=== PATIENT | male | born 2000 | race Caucasian/White ===

== ENCOUNTER 2021-08-26 15:10 | Inpatient (IN) | payer OTHER, SELFPAY ==
[2021-08-26] VITALS (7 sets, daily range): BP systolic 97–111; BP diastolic 50–67; PULSE 114–126; RESP 16–22; TEMP 38.4–39.3; O2SAT 97–100; BMI 23.3; BMI 23.1
--- NOTE | 2021-08-26 16:07 | W.ED.GENADLT ---
Documented by User: LYN Mills 08/26/21 16:12 HPI - General Adult General: Chief complaint: General Medical Stated complaint: COUGH, NAUSEA, MUSCLE ACHES, STATES FEVER Time Seen by Provider: 08/26/21 16:02 History of Present Illness: HPI narrative: Patient presents with fever headache ,chills,muscle aches, eye pressure, redness and slight cough , rash over the last couple or 3 days. Patient is recently seen by his primary care provider and put on antibiotics because he had a pilonidal cyst removed and they thought it might be infected because it had some drainage. Patient states he just does not feel good. Is supposed to go back up to [facility] in a couple weeks for reevaluation of his pilonidal cyst area. Patient was placed on Bactrim. Onset (ago): day(s) Location: face, upper extremity and lower extremity Severity: moderate Quality: aching Associated symptoms: Reports headache(s), malaise and rash; Deny chest pain or vomiting Review of Systems Const: Reports: fever(s) and malaise; Denies: chills or body aches Eyes: Reports: eye redness; Denies: eye discharge ENMT: Reports: throat pain; Denies: oral sores or nasal congestion Card: Denies: chest pain or dyspnea on exertion Resp: Reports: non-productive cough; Denies: wheezing or stridor GI: Denies: vomiting or diarrhea : Denies: difficulty urinating Musc: Reports: other (Myalgias); Denies: extremity pain Skin/Breast: Reports: rash and other (Recent pilonidal cyst surgery) Neuro: Reports: headache(s) Psych: Denies: anxiety or depression Benigno/Lymph: Denies: easy bruising Physical Exam Const: COMMON NORMALS: no acute distress (Child appears very well is playful in no distress) GENERAL APPEARANCE: cooperative HENMT: COMMON NORMALS: normocephalic, external ears normal, EAC's normal, TM's normal bilaterally and Normal external nose present HEAD & SCALP: normal to inspection and normocephalic FACE & SINUS: normal facial exam NOSE: Normal external nose present and No nasal discharge present EXTERNAL EAR: Yes external ears normal EXTERNAL AUDITORY CANAL: EAC's normal TYMPANIC MEMBRANE: TM's normal bilaterally MOUTH: Normal oral and palatal mucosa present THROAT: posterior oropharynx normal Eye: CONJUNCTIVA: Yes conjunctival abnormal positive bilateral conjunctival injection Lymph: LYMPHATIC: no lymphadenopathy noted Chest: COMMONS NORMALS: normal inspection of the chest Resp: COMMON NORMALS: normal respiratory effort, No retractions, No use of accessory muscles and clear to auscultation bilaterally AUSCULTATION: clear to auscultation bilaterally Cardio: COMMON NORMALS: regular rate and regular rhythm RATE: regular rate RHYTHM: regular rhythm GI: COMMON NORMALS: Normal to inspection, nondistended, normoactive bowel sounds present Extremity: COMMON NORMALS: normal to inspection Skin: RASHES: rashes noted (Faint red sandpaper type rash on trunk.) OTHER: Pilonodial cyst surgical site has slight sanguinous drainage about the wound itself there is no significant erythema. No tenderness. Course Vital Signs: Vital signs: Vital Signs Temperature 102.7 F H 08/26/21 18:38 Pulse Rate 125 H 08/26/21 18:38 Respiratory Rate 16 08/26/21 18:38 Blood Pressure 105/61 08/26/21 18:38 Pulse Oximetry 99 08/26/21 18:38 [facility] - General Adult Lab Data: Labs: Lab Results 08/26/21 08/26/21 08/26/21 16:28 16:28 16:28 WBC 16.7 10^3/uL H 10 ^3/uL (4.0-10.0) RBC 4.89 10^6/uL 10^6 /uL (4.1-5.3) Hgb 15.2 g/dL g/dL (11.7-16.6) Hct 45.1 % % (42.0-52.0) MCV 92.2 fl fl (80-94) MCH 31.1 pg pg (28.0-34.0) MCHC 33.7 g/dL g/dL (30.0-36.0) RDW 11.8 % L % (12.1-15.1) Plt Count 324 10^3/cmm 10^3 /cmm (130-400) MPV 9.4 fL fL (7.4-10.4) Neut % (Auto) 91.8 % % Lymph % (Auto) 4.0 % % [place] % (Auto) 2.7 % % Eos % (Auto) 1.0 % % Baso % (Auto) 0.1 % % Neut # (Auto) 15.29 10^3/uL H 1 0^3/uL (1.8-7.7) Lymph # (Auto) 0.7 10^3/uL L 10^ 3/uL (0.8-4.8) [place] # (Auto) 0.5 10^3/uL 10^3/ uL (0.2-0.9) Eos # (Auto) 0.2 10^3/uL 10^3/ uL (0.0-0.8) Baso # (Auto) 0.0 10^3/uL 10^3/ uL (0.0-0.1) Nucleated RBC % (a uto) 0 % % Nucleated RBCs # 0.0 /100WBC /100W BC Sodium 136 mmol/L mmol/L (136-145) Potassium 3.8 mmol/L mmol/L (3.5-5.1) Chloride 98 mmol/L mmol/L (98-107) Carbon Dioxide 28 mmol/L mmol/L (22-29) Anion Gap 13.8 (5-19) BUN 15 mg/dL mg/dL (6-20) Creatinine 0.8 mg/dL mg/dL (0.7-1.2) GFR Calculation 119.8 mL/min mL/m in (90-130) Glucose 92 mg/dL mg/dL (65-115) Calculated Osmolal ity 282 mOsm/kg L mOs m/kg (285-295) Lactic Acid 1.3 mmol/L mmol/L (0.5-2.2) Calcium 9.6 mg/dL mg/dL (8.5-10.5) Total Bilirubin 0.3 mg/dL mg/dL (0.15-1.2) AST 16 U/L U/L (0-40) ALT 14 U/L U/L (0-41) Alkaline Phosphata se 60 IU/L IU/L (40-130) Total Protein 7.5 g/dL g/dL (6.6-8.7) Albumin 4.6 g/dL g/dL (3.5-5.2) Globulin 2.9 g/dL g/dL (1.3-4.6) Influenza Type A A g Influenza Type B A g SARS-CoV-2 Ag (Rap id) 08/26/21 08/26/21 16:29 16:29 WBC RBC Hgb Hct MCV MCH MCHC RDW Plt Count MPV Neut % (Auto) Lymph % (Auto) [place] % (Auto) Eos % (Auto) Baso % (Auto) Neut # (Auto) Lymph # (Auto) [place] # (Auto) Eos # (Auto) Baso # (Auto) Nucleated RBC % (a uto) Nucleated RBCs # Sodium Potassium Chloride Carbon Dioxide Anion Gap BUN Creatinine GFR Calculation Glucose Calculated Osmolal ity Lactic Acid Calcium Total Bilirubin AST ALT Alkaline Phosphata se Total Protein Albumin Globulin Influenza Type A A g Negative (Negative) Influenza Type B A g Negative (Negative) SARS-CoV-2 Ag (Rap id) Negative (Negative) Discharge Plan Discharge Patient Disposition: Admitted As Inpatient Clinical Impression: Cellulitis and abscess of buttock, Sepsis Condition: Stable Coding Level of Care Code ED Inspection Manager for Chg Fwd Exam Comprehensive Documented by User: Migdalia Bailey MD 08/26/21 19:24 HPI - General Adult General: Chief complaint: General Medical Stated complaint: COUGH, NAUSEA, MUSCLE ACHES, STATES FEVER Time Seen by Provider: 08/26/21 16:02 Course Vital Signs: Vital signs: Vital Signs Temperature 102.7 F H 08/26/21 18:38 Pulse Rate 125 H 08/26/21 18:38 Respiratory Rate 16 08/26/21 18:38 Blood Pressure 105/61 08/26/21 18:38 Pulse Oximetry 99 08/26/21 18:38 MDM - General Adult MDM Narrative: Medical decision making narrative: Patient presents here with sepsis with fever and elevated white count he does have cellulitis on his medial buttocks took patient over from Dr. Guzman who noted on exam he did not have a drainable abscess CT does not show an abscess either but does show some cellulitis. Patient spiking a fever and his tachycardia his lactate here is normal does have an elevated white count has been on Bactrim for 2 days failed outpatient treatment will start IV antibiotics I spoke to hospitalist who will admit surgery is also consulted. Lab Data: Labs: Lab Results 08/26/21 08/26/21 08/26/21 16:28 16:28 16:28 WBC 16.7 10^3/uL H 10 ^3/uL (4.0-10.0) RBC 4.89 10^6/uL 10^6 /uL (4.1-5.3) Hgb 15.2 g/dL g/dL (11.7-16.6) Hct 45.1 % % (42.0-52.0) MCV 92.2 fl fl (80-94) MCH 31.1 pg pg (28.0-34.0) MCHC 33.7 g/dL g/dL (30.0-36.0) RDW 11.8 % L % (12.1-15.1) Plt Count 324 10^3/cmm 10^3 /cmm (130-400) MPV 9.4 fL fL (7.4-10.4) Neut % (Auto) 91.8 % % Lymph % (Auto) 4.0 % % [place] % (Auto) 2.7 % % Eos % (Auto) 1.0 % % Baso % (Auto) 0.1 % % Neut # (Auto) 15.29 10^3/uL H 1 0^3/uL (1.8-7.7) Lymph # (Auto) 0.7 10^3/uL L 10^ 3/uL (0.8-4.8) [place] # (Auto) 0.5 10^3/uL 10^3/ uL (0.2-0.9) Eos # (Auto) 0.2 10^3/uL 10^3/ uL (0.0-0.8) Baso # (Auto) 0.0 10^3/uL 10^3/ uL (0.0-0.1) Nucleated RBC % (a uto) 0 % % Nucleated RBCs # 0.0 /100WBC /100W BC Sodium 136 mmol/L mmol/L (136-145) Potassium 3.8 mmol/L mmol/L (3.5-5.1) Chloride 98 mmol/L mmol/L (98-107) Carbon Dioxide 28 mmol/L mmol/L (22-29) Anion Gap 13.8 (5-19) BUN 15 mg/dL mg/dL (6-20) Creatinine 0.8 mg/dL mg/dL (0.7-1.2) GFR Calculation 119.8 mL/min mL/m in (90-130) Glucose 92 mg/dL mg/dL (65-115) Calculated Osmolal ity 282 mOsm/kg L mOs m/kg (285-295) Lactic Acid 1.3 mmol/L mmol/L (0.5-2.2) Calcium 9.6 mg/dL mg/dL (8.5-10.5) Total Bilirubin 0.3 mg/dL mg/dL (0.15-1.2) AST 16 U/L U/L (0-40) ALT 14 U/L U/L (0-41) Alkaline Phosphata se 60 IU/L IU/L (40-130) Total Protein 7.5 g/dL g/dL (6.6-8.7) Albumin 4.6 g/dL g/dL (3.5-5.2) Globulin 2.9 g/dL g/dL (1.3-4.6) Influenza Type A A g Influenza Type B A g SARS-CoV-2 Ag (Rap id) 08/26/21 08/26/21 16:29 16:29 WBC RBC Hgb Hct MCV MCH MCHC RDW Plt Count MPV Neut % (Auto) Lymph % (Auto) [place] % (Auto) Eos % (Auto) Baso % (Auto) Neut # (Auto) Lymph # (Auto) [place] # (Auto) Eos # (Auto) Baso # (Auto) Nucleated RBC % (a uto) Nucleated RBCs # Sodium Potassium Chloride Carbon Dioxide Anion Gap BUN Creatinine GFR Calculation Glucose Calculated Osmolal ity Lactic Acid Calcium Total Bilirubin AST ALT Alkaline Phosphata se Total Protein Albumin Globulin Influenza Type A A g Negative (Negative) Influenza Type B A g Negative (Negative) SARS-CoV-2 Ag (Rap id) Negative (Negative) Imaging Data^: CT Abd/Pel: Attestation: I personally reviewed and interpreted this imaging study as follows: Radiologist's impression: [address] [address] [address] Scan Report Signed Patient: JasonNiall Sharmayuly Unit #: [id number] : 2000 Age/Sex: 21 / M ADM Date: 08/26/21 Loc: ER Room/Bed: Attending Dr: Ordering Provider/Ordering MD: Ash Guzman MD Date of Service: 08/26/21 Procedure(s): CT abdomen pelvis w con* [id number] Accession Number(s): [id number] Report Number: [id number] PROCEDURE INFORMATION: Exam: CT Abdomen And Pelvis With Contrast Exam date and time: 08/26/2021 5:49 PM Age: 21 years old Clinical indication: Fever; Abdominal pain; Localized; Lower; Additional info: Rectal abscess? ? Prior pilondial cyst [place] TECHNIQUE: Imaging protocol: Computed tomography of the abdomen and pelvis with contrast. Radiation optimization: All CT scans at this facility use at least one of these dose optimization techniques: automated exposure control; mA and/or kV adjustment per patient size (includes targeted exams where dose is matched to clinical indication); or iterative reconstruction. Contrast material: OMNI 350; Contrast volume: 95 ml; Contrast route: INTRAVENOUS (IV); COMPARISON: CR XR chest 1V portable [id number] 08/26/2021 4:56 PM RADIATION DOSE METRICS: Total DLP (mGy-cm): 1624.1 FINDINGS: Liver: Normal. No mass. Gallbladder and bile ducts: Normal. No calcified stones. No ductal dilation. Pancreas: Normal. No ductal dilation. Spleen: Normal. No splenomegaly. Adrenal glands: Normal. No mass. Kidneys and ureters: Normal. No hydronephrosis. Stomach and bowel: Unremarkable. No obstruction. No mucosal thickening. Appendix: The appendix is visualized and is normal. Intraperitoneal space: Unremarkable. No free air. No significant fluid collection. Vasculature: Unremarkable. No abdominal aortic aneurysm. Lymph nodes: Prominent mesenteric and inguinal lymph nodes are most likely reactive. Urinary bladder: Unremarkable as visualized. Reproductive: Unremarkable as visualized. Bones/joints: Chronic limbus L3 and L5 vertebral bodies. No acute fracture. Soft tissues: Mild subcutaneous fat stranding or edema in the bilateral buttock region. No focal fluid collection or abscess. CT/CT abdomen pelvis w con* [id number] IMPRESSION: 1. Mild subcutaneous edema or cellulitis in the medial buttocks. No abscess identified. Radiation Dose CTDIVOL = (mGy): DLP = 1624.1 (mGy-cm) Dictated By: Ignacio Wall Signed By: Ignacio Wall Signed Date/Time: 08/26/211821 DD/ 48 Discharge Plan Discharge Patient Disposition: Admitted As Inpatient Clinical Impression: Cellulitis and abscess of buttock, Sepsis Condition: Stable Coding Level of Care Code ED Inspection Manager for Chg Fwd Exam Comprehensive
[2021-08-26] MEDS: acetaminophen 500 mg Tablet 1000 MG PO ×2 (16:17→19:10)
--- NOTE | 2021-08-26 16:48 | XRR_ITS ---
PROCEDURE INFORMATION: Exam: XR Chest Exam date and time: 08/26/2021 4:48 PM Age: 21 years old Clinical indication: Cough TECHNIQUE: Imaging protocol: XR of the chest. Views: 1 view. COMPARISON: CR Chest 2 views* [id number] 04/25/2017 2:11 PM FINDINGS: Lungs: Unremarkable. No consolidation. Pleural spaces: Unremarkable. No pleural effusion. No pneumothorax. Heart/Mediastinum: Unremarkable. No cardiomegaly. Bones/joints: Unremarkable. XR/XR chest 1V portable [id number] IMPRESSION: No acute findings. Radiation Dose CTDIVOL = (mGy): DLP = (mGy-cm)
[2021-08-26 16:50] LABS: Basophils % 0.1 %; Eosinophils # 0.2 10^3/uL (0.0-0.8); Hematocrit 45.1 % (42.0-52.0); Hemoglobin 15.2 g/dL (11.7-16.6); Lymphocytes # 0.7 10^3/uL (0.8-4.8); Mean Corpuscular HGB Conc 33.7 g/dL (30.0-36.0); Mean Corpuscular Hemoglobin 31.1 pg (28.0-34.0); Mean Corpuscular Volume 92.2 fl (80-94); Mean Platelet Volume 9.4 fL (7.4-10.4); Monocytes # 0.5 10^3/uL (0.2-0.9); Monocytes % 2.7 %; Neutrophils # 15.29 10^3/uL (1.8-7.7); Neutrophils % 91.8 %; Nucleated Red Blood Cells % 0 %; Platelet Count 324 10^3/cmm (130-400); Red Blood Count 4.89 10^6/uL (4.1-5.3); Red Cell Distribution Width 11.8 % (12.1-15.1); White Blood Count 16.7 10^3/uL (4.0-10.0)
[2021-08-26] MEDS: sodium chloride 0.9% 1,000 ML 999 ML IV ×3 (16:54→19:13)
[2021-08-26 17:21] LABS: Alanine Aminotransferase 14 U/L (0-41); Albumin Level 4.6 g/dL (3.5-5.2); Alkaline Phosphatase 60 IU/L (40-130); Anion Gap 13.8 (5-19); Aspartate Amino Transferase 16 U/L (0-40); Blood Urea Nitrogen 15 mg/dL (6-20); Calcium 9.6 mg/dL (8.5-10.5); Carbon Dioxide 28 mmol/L (22-29); Chloride 98 mmol/L (98-107); Globulin 2.9 g/dL (1.3-4.6); Glomerular Filtration Rate 119.8 mL/min (90-130); Glucose 92 mg/dL (65-115); Osmolality Calculated 282 mOsm/kg (285-295); Potassium 3.8 mmol/L (3.5-5.1); Sodium 136 mmol/L (136-145); Total Bilirubin 0.3 mg/dL (0.15-1.2); Total Protein 7.5 g/dL (6.6-8.7)
[2021-08-26 17:22] LABS: Lactic Sepsis W/Reflex 1.3 mmol/L (0.5-2.2)
[2021-08-26 17:33] LABS: Influenza A by IFA Negative (Negative); Influenza B by IFA Negative (Negative); SARS Covid-2 Antigen Negative (Negative)
--- NOTE | 2021-08-26 17:49 | CTR_ITS ---
PROCEDURE INFORMATION: Exam: CT Abdomen And Pelvis With Contrast Exam date and time: 08/26/2021 5:49 PM Age: 21 years old Clinical indication: Fever; Abdominal pain; Localized; Lower; Additional info: Rectal abscess? ? Prior pilondial cyst [place] TECHNIQUE: Imaging protocol: Computed tomography of the abdomen and pelvis with contrast. Radiation optimization: All CT scans at this facility use at least one of these dose optimization techniques: automated exposure control; mA and/or kV adjustment per patient size (includes targeted exams where dose is matched to clinical indication); or iterative reconstruction. Contrast material: OMNI 350; Contrast volume: 95 ml; Contrast route: INTRAVENOUS (IV); COMPARISON: CR XR chest 1V portable [id number] 08/26/2021 4:56 PM RADIATION DOSE METRICS: Total DLP (mGy-cm): 1624.1 FINDINGS: Liver: Normal. No mass. Gallbladder and bile ducts: Normal. No calcified stones. No ductal dilation. Pancreas: Normal. No ductal dilation. Spleen: Normal. No splenomegaly. Adrenal glands: Normal. No mass. Kidneys and ureters: Normal. No hydronephrosis. Stomach and bowel: Unremarkable. No obstruction. No mucosal thickening. Appendix: The appendix is visualized and is normal. Intraperitoneal space: Unremarkable. No free air. No significant fluid collection. Vasculature: Unremarkable. No abdominal aortic aneurysm. Lymph nodes: Prominent mesenteric and inguinal lymph nodes are most likely reactive. Urinary bladder: Unremarkable as visualized. Reproductive: Unremarkable as visualized. Bones/joints: Chronic limbus L3 and L5 vertebral bodies. No acute fracture. Soft tissues: Mild subcutaneous fat stranding or edema in the bilateral buttock region. No focal fluid collection or abscess. CT/CT abdomen pelvis w con* [id number] IMPRESSION: 1. Mild subcutaneous edema or cellulitis in the medial buttocks. No abscess identified. Radiation Dose CTDIVOL = (mGy): DLP = 1624.1 (mGy-cm)
[2021-08-26] MEDS: iohexol 300 mg/mL 100 mL Btl IV (17:59)
[2021-08-26] MEDS: HYDROmorphone 1 mg/mL INJ 1 mL IVP (19:28)
[2021-08-26] MEDS: vancomycin 1,000 MG in sodium chloride 0.9% 250 ML 250 MG IV (19:35)
--- NOTE | 2021-08-26 20:19 | PM.HP ---
Providers/Chief Complaint Admitting Physician: J Carlos Gandhi Chief Complaint: COUGH, NAUSEA, MUSCLE ACHES, STATES FEVER History of Present Illness Niall Gomez is a 21 year old male with a recent history of pilonidal cyst which falls removed about 3 months ago in a different state, no significant chronic medical problems who is presenting with complaints of fever and chills. Since his surgery the patient was experiencing ongoing discharge and bleeding from the surgical site. No significant improvement with outpatient p.o. antibiotics. He reports associated pain. Several days ago he developed fever which increased reaching 104 today. Reports feeling sick. Additionally he reports runny nose, congestion, cough. No chest pain, shortness of breath, palpitations, nausea or vomiting, diarrhea or constipation. Covid and flu testing in ER was negative. Chest x-ray was unremarkable. Denies any similar episodes in the past. Review of Systems General: Reports: 10 or more systems reviewed and unremarkable except in HPI and below Medications/Allergies Allergies Allergy/AdvReac Type Severity Reaction Status Date / Time No Known Allergies Allergy Verified 08/26/21 19:02 Vitals/I&O/Wt Last Vital Signs Temp 102.5 F H 08/26/21 19:10 Pulse 125 H 08/26/21 19:10 Resp 22 H 08/26/21 19:28 BP 102/67 08/26/21 19:10 Pulse Ox 99 08/26/21 19:10 08/26/21 08/26/21 08/26/21 06:59 14:59 22:59 Intake Total 1999 Balance 1999 Weight last 48 hrs Weight 87.09 kg Physical Exam Narrative: EXAM NARRATIVE: The patient is awake alert and oriented. Responses are adequate. Mild distress due to generalized symptoms and fever. Skin is warm, hyperemic and slightly diaphoretic. Moist mucous membranes Eyes PERRL, extraocular muscles are intact. Scleral injection is present. Throat is clear, no exudates, hyperemic. Neck is supple. No JVD Lungs are clear to auscultation bilaterally. No wheezes or crackles Heart S1, S2, regular tachycardia Abdomen is soft, nontender, bowel sounds are present Examination of the buttock area shows upper midline wound with purulent discharge and surrounding cellulitis and hyperemia. Extremities no edema cyanosis or calf tenderness bilaterally Data : 08/26/21 16:28 08/26/21 16:28 Other Labs: Laboratory Results WBC 16.7 10^3/uL (4.0-10.0) H 08/26/21 16: RBC 4.89 10^6/uL (4.1-5.3) 08/26/21 16:28 Hgb 15.2 g/dL (11.7-16.6) 08/26/21 16: Hct 45.1 % (42.0-52.0) 08/26/21 16: MCV 92.2 fl (80-94) 08/26/21 16: MCH 31.1 pg (28.0-34.0) 08/26/21 16: MCHC 33.7 g/dL (30.0-36.0) 08/26/21 16: RDW 11.8 % (12.1-15.1) L 08/26/21 16: Plt Count 324 10^3/cmm (130-400) 08/26/21 16: MPV 9.4 fL (7.4-10.4) 08/26/21 16: Neut % (Auto) 91.8 % 08/26/21 16: Lymph % (Auto) 4.0 % 08/26/21 16: [place] % (Auto) 2.7 % 08/26/21 16: Eos % (Auto) 1.0 % 08/26/21 16: Baso % (Auto) 0.1 % 08/26/21 16: Neut # (Auto) 15.29 10^3/uL (1.8-7.7) H 08/26/21 16: Lymph # (Auto) 0.7 10^3/uL (0.8-4.8) L 08/26/21 16:28 [place] # (Auto) 0.5 10^3/uL (0.2-0.9) 08/26/21 16: Eos # (Auto) 0.2 10^3/uL (0.0-0.8) 08/26/21 16:28 Baso # (Auto) 0.0 10^3/uL (0.0-0.1) 08/26/21 16:28 Nucleated RBC % (auto) 0 % 08/26/21 16:28 Nucleated RBCs # 0.0 /100WBC 08/26/21 16:28 Sodium 136 mmol/L (136-145) 08/26/21 16:28 Potassium 3.8 mmol/L (3.5-5.1) 08/26/21 16:28 Chloride 98 mmol/L (98-107) 08/26/21 16:28 Carbon Dioxide 28 mmol/L (22-29) 08/26/21 16:28 Anion Gap 13.8 (5-19) 08/26/21 16:28 BUN 15 mg/dL (6-20) 08/26/21 16:28 Creatinine 0.8 mg/dL (0.7-1.2) 08/26/21 16:28 GFR Calculation 119.8 mL/min (90-130) 08/26/21 16:28 Glucose 92 mg/dL (65-115) 08/26/21 16:28 Calculated Osmolality 282 mOsm/kg (285-295) L 08/26/21 16:28 Lactic Acid 1.3 mmol/L (0.5-2.2) 08/26/21 16:28 Calcium 9.6 mg/dL (8.5-10.5) 08/26/21 16:28 Total Bilirubin 0.3 mg/dL (0.15-1.2) 08/26/21 16:28 AST 16 U/L (0-40) 08/26/21 16:28 ALT 14 U/L (0-41) 08/26/21 16:28 Alkaline Phosphatase 60 IU/L (40-130) 08/26/21 16:28 Total Protein 7.5 g/dL (6.6-8.7) 08/26/21 16:28 Albumin 4.6 g/dL (3.5-5.2) 08/26/21 16:28 Globulin 2.9 g/dL (1.3-4.6) 08/26/21 16:28 Influenza Type A Ag Negative (Negative) 08/26/21 16:29 Influenza Type B Ag Negative (Negative) 08/26/21 16:29 SARS-CoV-2 Ag (Rapid) Negative (Negative) 08/26/21 16:29 Impressions Chest X-Ray 08/26/21 16:48 IMPRESSION: No acute findings. Radiation Dose CTDIVOL = (mGy): DLP = (mGy-cm) Abdomen/Pelvis CT 08/26/21 17:49 IMPRESSION: 1. Mild subcutaneous edema or cellulitis in the medial buttocks. No abscess identified. Radiation Dose CTDIVOL = (mGy): DLP = 1624.1 (mGy-cm) Micro: Microbiology 08/26/21 18:56 Blood Culture - Preliminary Blood SPECIMEN COLLECTED 08/26/21 18:57 Blood Culture - Preliminary Blood SPECIMEN COLLECTED A&P Additional A&P Information 21 year old male with a recent history of pilonidal cyst which falls removed about 3 months ago in a different state, no significant chronic medical problems who is presenting with complaints of fever and chills. Sepsis secondary to below. Hemodynamically stable. Cultures are obtained. We will start IV fluids and antibiotics. We will recheck his labs in the morning and adjust IV fluids accordingly. Lumbosacral and gluteal cellulitis secondary to recurrent pilonidal cyst and sinus infection. Dr. Davey will see the patient in the morning. The patient will be n.p.o. after midnight. We will cover him with vancomycin and Zosyn and wait for the culture results. He will receive pain medications as needed. Upper respiratory infection. Flu and COVID-19 testing was negative in ER. Will order viral respiratory panel PCR. We will continue supportive care. DVT prophylaxis. SCDs. The plan of care was discussed with the patient and his family. They verbalized understanding and agreement. Attestations Medical Necessity Statement*: I expect that the patient will spend more than 2 midnights in the hospital due to above listed medical conditions requiring IV antibiotics and probably surgical procedure. Coding Level of Care Code Acute Biomedical Engineering Internship for Flores Patterson
[2021-08-26] MEDS: piperacillin-tazobactam 3.375 GM in sodium chloride 0.9% (plus) 50 ML IV (21:01)
[2021-08-26] MEDS: morphine 4 mg/mL SDV 1 mL 2 MG IVP (21:02)
--- NOTE | 2021-08-26 21:45 | PC.NURSE ---
PHYSICIAN NOTIFICATION: PATIENT CAME TO FLOOR VIA STRETCHER FROM ED. UPON ARRIVAL TO FLOOR BED, V/S OBTAINED AND PATIENT IS FEBRILE AT 101.4 AXILLAE. HOSPITALIST HEALTH THERAPIST NOTIFIED AND ORDERS FOR PO IBUPROFEN 600 MG PRN Q8 HOURS.
[2021-08-26] MEDS: ibuprofen 600 mg Tablet PO (22:14)
[2021-08-26] MEDS: sodium chlor 0.9% + KCl 20 mEq 20 MEQ/1,000 ML BAG 150 MEQ IV (22:17)
[2021-08-27] VITALS (8 sets, daily range): BP systolic 88–144; BP diastolic 48–94; PULSE 83–106; RESP 16–20; TEMP 37.1–38.6; O2SAT 97–100
[2021-08-27] MEDS: sodium chlor 0.9% + KCl 20 mEq 20 MEQ/1,000 ML BAG 150 MEQ IV ×3 (05:16→20:09)
[2021-08-27] MEDS: piperacillin-tazobactam 3.375 GM in sodium chloride 0.9% (plus) 50 ML IV ×3 (05:16→20:09)
[2021-08-27 06:11] LABS: Basophils % 0.2 %; Eosinophils # 0.4 10^3/uL (0.0-0.8); Eosinophils % 2.8 %; Hematocrit 38.4 % (42.0-52.0); Hemoglobin 12.6 g/dL (11.7-16.6); Lymphocytes # 0.9 10^3/uL (0.8-4.8); Lymphocytes % 7.5 %; Mean Corpuscular HGB Conc 32.8 g/dL (30.0-36.0); Mean Corpuscular Hemoglobin 31.1 pg (28.0-34.0); Mean Corpuscular Volume 94.8 fl (80-94); Mean Platelet Volume 9.2 fL (7.4-10.4); Monocytes # 0.7 10^3/uL (0.2-0.9); Monocytes % 5.4 %; Neutrophils # 10.31 10^3/uL (1.8-7.7); Neutrophils % 83.6 %; Nucleated Red Blood Cells % 0 %; Platelet Count 245 10^3/cmm (130-400); Red Blood Count 4.05 10^6/uL (4.1-5.3); White Blood Count 12.3 10^3/uL (4.0-10.0)
[2021-08-27 06:33] LABS: Anion Gap 10.1 (5-19); Blood Urea Nitrogen 11 mg/dL (6-20); Calcium 7.9 mg/dL (8.5-10.5); Carbon Dioxide 23 mmol/L (22-29); Chloride 109 mmol/L (98-107); Glomerular Filtration Rate 119.8 mL/min (90-130); Glucose 93 mg/dL (65-115); Magnesium 1.7 mg/dL (1.7-2.3); Osmolality Calculated 285 mOsm/kg (285-295); Potassium 4.1 mmol/L (3.5-5.1); Sodium 138 mmol/L (136-145)
[2021-08-27] MEDS: docusate sodium 100 mg Capsule PO ×2 (09:19→18:28)
[2021-08-27] MEDS: acetaminophen 325 mg Tablet 650 MG PO ×2 (09:19→16:54)
--- NOTE | 2021-08-27 10:27 | PC.CHAP ---
Pastoral Care Encounter/Spiritual Assessment Type of Contact [] Declined natural gas plant technician visit [] Patient/Family/Request visit [] Outpatient visit [] Follow-up visit [] Physician referral [] Code/Alert [x] Routine visit [] Staff referral [] Actively dying [] Patient sleeping [] Family support [] [] Out of room [] Palliative care [] [x] Receiving care in room [] Pre-surgical visit [] Trauma [] Long length of stay [] ICU visit [] Other: Relational/Emotional Strength [x] Patient feels connected with others/family/visitors/staff [] Distress [] Loneliness/isolation [] Abandonment Spirituality of Patient [x] Person of Judi [] Attends Taoism of their Judi [] Believes in Prayer [] Reads Bible or Taoism materials [] There are Spiritual issues to be addressed Cooler Man Interventions [] Prayer [] Active listening [] Non-anxious presence [] Spiritual/emotional support [] Crisis/trauma care [] Spiritual counseling [] Bereavement support [] Provided bereavement packet [] Provided Bible/devotional materials [] Provided toy/stuffed animal, coloring book to patient or family member [] Provided Communion [] Anointing/[place] [] Salvation [] Completed spiritual assessment [] Other: Impact on Illness or Injury [] Angry [] Fearful [x] Anxious [] Often cries [] Exhaustion [] Unable to work [] Unable to attend pentecostalism [] Unable to walk/stand [] Unable to read [] Unable to drive [] Unable to eat/drink [] Unable to sleep [] Unable to be with family [] Patient intubated [] Other: Summary bowel blockage will be able to home when he gets a bowl movement has a good attitude Time spent with patient 5 mins
--- NOTE | 2021-08-27 12:27 | PM.PN ---
Subjective Subjective: Interval history: 21 year old male with a recent history of pilonidal cyst which falls removed about 3 months ago [place] a [place] state, no significant chronic medical problems who is presenting with complaints of fever and chills. Since his surgery the patient was experiencing ongoing discharge and bleeding from the surgical site. No significant improvement with outpatient p.o. antibiotics. He reports associated pain. Several days ago he developed fever which increased reaching 104 today. Reports feeling sick. Additionally he reports runny nose, congestion, cough. No chest pain, shortness of breath, palpitations, nausea or vomiting, diarrhea or constipation. Covid and flu testing in ER was negative. Chest x-ray was unremarkable. Denies any similar episodes in the past. Upon patient to the hospital patient was seen by general surgery. CT abdomen pelvis did not show any evidence of abscess. Patient was started on IV antibiotics. Vitals/I&O/Wt Last Vital Signs Temp 98.7 F 08/27/21 20:00 Pulse 106 H 08/27/21 20:00 Resp 20 H 08/27/21 20:00 BP 108/48 08/27/21 20:00 Pulse Ox 97 08/27/21 20:00 08/27/21 08/27/21 08/27/21 06:59 14:59 22:59 Intake Total 1000 / 4300 1530 / 1530 1440 / 2970 Balance 1000 / 4300 1530 / 1530 1440 / 2970 Weight last 48 hrs Weight 86.273 kg Weight 87.09 kg Physical Exam Narrative: EXAM NARRATIVE: General- alert awake oriented, no apparent distress HEENT: Normocephalic, question remarkable CVS- normal sinus rhythm Chest- nonlabored respiration Abdomen: Soft to palpation Neurological: Oriented to place person and time Skin: Intact, 8 x 2 x 2 cm wound -purulent drainage Data : 08/27/21 05:54 08/27/21 05:54 Micro: Microbiology 08/26/21 18:56 Blood Culture - Preliminary Blood NEGATIVE TO DATE 08/26/21 18:57 Blood Culture - Preliminary Blood NEGATIVE TO DATE A&P Assessment and plan (1) Cellulitis and abscess of buttock: CT abdomen pelvis-No evidence of fluid collection General surgery on board no plan for surgical intervention Continue IV antibiotics Blood cultures x2 Tylenol p.r.n. for fever CBC BMP in a.m. Status: Acute (2) History of excision of pilonidal cyst: Wound care instructions as per General surgery Status: Acute Attestations Medical Necessity Statement*: For further hospitalization for management of infection requiring IV antibiotics Time Spent in Patient Care: Greater than 35 minutes Coding Level of Care Code Acute Scientific Process Operator for Flores Patetrson Diagnoses Cellulitis and abscess of buttock L02.31; L03.317 History of excision of pilonidal cyst Z98.890
--- NOTE | 2021-08-27 15:01 | P.CONIM_ITS ---
Providers/Reason For Consult Consulting Physician/Specialty*: General Surgery Dr. Davey Reason for Consult*: Cellulitis gluteal area Attending Physician: Juanito Turner History of Present Illness History of Present Illness Niall Gomez is a 21 year old male status post pilonidal cystectomy 3 months ago in [place] who presents with pain and swelling in the perianal area. Patient was also noted to be febrile and he states that he has been having ongoing bleeding and drainage from the surgical site. He denies any constipation or diarrhea. This morning he feels a bit better compared to last night since he was started on antibiotics. Review of Systems General: Reports: 10 or more systems reviewed and unremarkable except in HPI and below Meds/Allergies Home Medications and Allergies Allergies Allergy/AdvReac Type Severity Reaction Status Date / Time No Known Allergies Allergy Verified 08/26/21 19:02 Current Medications Current Medications Generic Name Dose Route Start Last Admin Trade Name Freq PRN Reason Stop Dose Admin Acetaminophen 650 mg 08/26/21 20:14 08/27/21 09:19 Acetaminophen 325 Mg Tablet PO 650 mg Q6H PRN Administration MILD PAIN Docusate Sodium 100 mg 08/27/21 09:00 08/27/21 09:19 Docusate Sodium 100 Mg Capsule PO 100 mg BID OCTAVIO Administration Piperacillin Sod/Tazobactam 50 mls @ 12.5 mls/hr 08/26/21 21:00 08/27/21 09:20 Sod 3.375 gm/ Sodium Chloride IV Infused Q8H OCTAVIO Infusion Protocol Potassium Chloride/Sodium Chloride 20 meq in 1,000 mls @ 150 mls/hr 08/26/21 20:15 08/27/21 05:16 Sodium Chlor 0.9% + Kcl 20 Meq IV 150 mls/hr .Q6H40M OCTAVIO Administration Ibuprofen 600 mg 08/26/21 21:53 08/26/21 22:14 Ibuprofen 600 Mg Tablet PO 600 mg Q8H PRN Administration MODERATE PAIN Morphine Sulfate 2 mg 08/26/21 20:14 08/26/21 21:02 Morphine 4 Mg/Ml Sdv 1 Ml IVP 2 mg Q4H PRN Administration SEVERE PAIN PFSH Acute PFSH: Surgical History (Updated 08/27/21 @ 15:03 by Edgard Davey MD) History of excision of pilonidal cyst Vitals/I&O/Wt Last Vital Signs Temp 100.6 F H 08/27/21 11:57 Pulse 93 08/27/21 11:57 Resp 16 08/27/21 11:57 BP 144/94 08/27/21 11:57 Pulse Ox 97 08/27/21 11:57 08/27/21 08/27/21 08/27/21 06:59 14:59 22:59 Intake Total 1000 / 4300 530 / 530 Balance 1000 / 4300 530 / 530 Weight last 48 hrs Weight 190 lb 3.2 oz Weight 192 lb Physical Exam Narrative: EXAM NARRATIVE: HEENT: Normocephalic Eye: Sclera /conjunctiva normal Abdomen: Soft to palpation Neurological: Oriented to place person and time Skin: Intact, 8 x 2 x 2 cm wound in the gluteal cleft, mildly tender to palpation bilaterally but no significant erythema, has bloody purulent drainage Data Micro: Micro: Microbiology 08/26/21 18:56 Blood Culture - Pr eliminary Blood SPECIMEN [facility] 08/26/21 18:57 Blood Culture - Pr eliminary Blood SPECIMEN [facility] A&P Assessment and plan (1) Cellulitis and abscess of buttock: 21-year-old male who presents with pain and swelling in the gluteal region with purulent drainage over the last few days. Patient is also febrile and his white count is up to 16 K though it is down to [address] abdomen pelvis which showed cellulitis but no evidence of abscess Continue IV antibiotics Repeat labs tomorrow Hopefully patient can go home in the next 24 to 48 hours if he is afebrile Status: Acute (2) History of excision of pilonidal cyst: Patient has open wound after pilonidal cyst excision and therefore will need follow-up in wound care clinic Wet-to-dry dressing change once daily while in the hospital Status: Acute Consult Attestations Medical Necessity Statement: As per attending physician Coding Level of Care Code Acute Occupational Therapist Aide for Flores Patterson Diagnoses Cellulitis and abscess of buttock L02.31; L03.317 History of excision of pilonidal cyst Z98.890
[2021-08-27] MEDS: morphine 4 mg/mL SDV 1 mL 2 MG IVP (16:57)
--- NOTE | 2021-08-27 21:12 | PC.NURSE ---
i reported high pulse 106 and high reps 20 to nurse
[2021-08-28] VITALS (8 sets, daily range): BP systolic 97–121; BP diastolic 44–73; PULSE 79–99; RESP 17–18; TEMP 36.8–37.8; O2SAT 95–98
[2021-08-28] MEDS: morphine 4 mg/mL SDV 1 mL 2 MG IVP ×2 (00:42→20:36)
[2021-08-28] MEDS: sodium chlor 0.9% + KCl 20 mEq 20 MEQ/1,000 ML BAG 150 MEQ IV ×2 (03:18→10:05)
[2021-08-28] MEDS: piperacillin-tazobactam 3.375 GM in sodium chloride 0.9% (plus) 50 ML IV ×3 (04:26→20:37)
[2021-08-28 06:24] LABS: Basophils % 0.1 %; Eosinophils # 0.2 10^3/uL (0.0-0.8); Hematocrit 36.1 % (42.0-52.0); Lymphocytes # 1.5 10^3/uL (0.8-4.8); Lymphocytes % 15.1 %; Mean Corpuscular HGB Conc 33.2 g/dL (30.0-36.0); Mean Corpuscular Hemoglobin 30.8 pg (28.0-34.0); Mean Corpuscular Volume 92.6 fl (80-94); Mean Platelet Volume 9.9 fL (7.4-10.4); Monocytes # 0.7 10^3/uL (0.2-0.9); Monocytes % 6.7 %; Neutrophils # 7.42 10^3/uL (1.8-7.7); Neutrophils % 75.8 %; Nucleated Red Blood Cells % 0 %; Platelet Count 246 10^3/cmm (130-400); Red Cell Distribution Width 11.9 % (12.1-15.1); White Blood Count 9.8 10^3/uL (4.0-10.0)
[2021-08-28 06:47] LABS: Alanine Aminotransferase 10 U/L (0-41); Albumin Level 3.5 g/dL (3.5-5.2); Alkaline Phosphatase 42 IU/L (40-130); Aspartate Amino Transferase 12 U/L (0-40); Blood Urea Nitrogen 6 mg/dL (6-20); Calcium 8.5 mg/dL (8.5-10.5); Carbon Dioxide 24 mmol/L (22-29); Chloride 104 mmol/L (98-107); Globulin 2.4 g/dL (1.3-4.6); Glomerular Filtration Rate 119.8 mL/min (90-130); Glucose 96 mg/dL (65-115); Osmolality Calculated 277 mOsm/kg (285-295); Sodium 135 mmol/L (136-145); Total Bilirubin 0.5 mg/dL (0.15-1.2); Total Protein 5.9 g/dL (6.6-8.7)
--- NOTE | 2021-08-28 10:45 | PC.NURSE ---
In room to talk with patient. Patient states, I have just spoken to my mom and everything is okay.
--- NOTE | 2021-08-28 12:10 | PM.PN ---
Subjective Subjective: Interval history: Patient was seen and examined this morning overall he is doing better, noted T-max:100.1. WBC count is decreasing. Blood cultures negative so far. Medications: Reviewed: Yes Vitals/I&O/Wt Last Vital Signs Temp 98.5 F 08/28/21 11:17 Pulse 91 08/28/21 11:17 Resp 17 08/28/21 11:17 BP 110/61 08/28/21 11:17 Pulse Ox 98 08/28/21 11:17 08/27/21 08/28/21 08/28/21 22:59 06:59 14:59 Intake Total 1440 / 2970 2090 / 5060 1150 / 1150 Output Total 1700 / 1700 Balance 1440 / 2970 390 / 3360 1150 / 1150 Weight last 48 hrs Weight 86.273 kg Weight 87.09 kg Physical Exam Const: COMMON NORMALS: patient oriented x3 HENMT: COMMON NORMALS: normocephalic and atraumatic HEAD & SCALP: normocephalic and atraumatic Resp: COMMON NORMALS: clear to auscultation bilaterally EFFORT & INSPECTION: Yes symmetric chest movement AUSCULTATION: clear to auscultation bilaterally Cardio: COMMON NORMALS: regular rate, regular rhythm, S1 normal heart sound present, S2 normal heart sound present, No gallops present (Cardio), No murmurs present (Cardio), No rub (Cardio) and Peripheral pulses 2+ throughout RATE: regular rate RHYTHM: regular rhythm HEART SOUNDS: S1 normal heart sound present and S2 normal heart sound present PERIPHERAL PULSES: Peripheral pulses 2+ throughout GI: COMMON NORMALS: Normal to inspection, nondistended, normoactive bowel sounds present, Soft to palpation, non-tender, No hepatosplenomegaly present and no masses AUSCULTATION: Yes normoactive bowel sounds PALPATION: Yes Soft to palpation and Yes No hepatosplenomegaly present RECTAL EXAM: Yes deferred Extremity: COMMON NORMALS: no clubbing, cyanosis or edema and no pedal edema Neuro: COMMON NORMALS: patient oriented x3 Data : 08/28/21 05:36 08/28/21 05:36 Micro: Microbiology 08/26/21 18:56 Blood Culture - Preliminary Blood NEGATIVE TO DATE 08/26/21 18:57 Blood Culture - Preliminary Blood NEGATIVE TO DATE A&P Assessment and plan (1) Cellulitis and abscess of buttock: CT abdomen pelvis-No evidence of fluid collection General surgery on board no plan for surgical intervention Continue IV antibiotics Blood cultures x2 Tylenol p.r.n. for fever Status: Acute (2) History of excision of pilonidal cyst: Wound care instructions as per General surgery Status: Acute Additional A&P Information 21 year old male with a recent history of pilonidal cyst which falls removed about 3 months ago [place] a [place] state, no significant chronic medical problems who is presenting with complaints of fever and chills. Sepsis secondary to below. Hemodynamically stable. Cultures are obtained. We will start IV fluids and antibiotics. We will recheck his labs in the morning and adjust IV fluids accordingly. Lumbosacral and gluteal cellulitis secondary to recurrent pilonidal cyst and sinus infection. Dr. Davey will see the patient in the morning. The patient will be n.p.o. after midnight. We will cover him with vancomycin and Zosyn and wait for the culture results. He will receive pain medications as needed. Upper respiratory infection. Flu and COVID-19 testing was negative in ER. Will order viral respiratory panel PCR. We will continue supportive care. DVT prophylaxis. SCDs. The plan of care was discussed with the patient and his family. They verbalized understanding and agreement. Attestations Medical Necessity Statement*: Patient is to be in hospital for IV antibiotics, and monitoring of fever. Coding Level of Care Code Acute Fiberglass Ski Maker for radha Patterson Diagnoses Cellulitis and abscess of buttock L02.31; L03.317 History of excision of pilonidal cyst Z98.890
--- NOTE | 2021-08-28 13:44 | PM.PN ---
Subjective Subjective: Interval history: Patient overall feels a lot better, denies significant pain, T-max 100.1 Vitals/I&O/Wt Last Vital Signs Temp 98.5 F 08/28/21 11:17 Pulse 91 08/28/21 11:17 Resp 17 08/28/21 11:17 BP 110/61 08/28/21 11:17 Pulse Ox 98 08/28/21 11:17 08/27/21 08/28/21 08/28/21 22:59 06:59 14:59 Intake Total 1440 / 5060 2090 / 5060 1150 / 1150 Output Total 1700 / 1700 Balance 1440 / 3360 390 / 3360 1150 / 1150 Weight last 48 hrs Weight 190 lb 3.2 oz Weight 192 lb Physical Exam Narrative: EXAM NARRATIVE: Gluteal cleft : wound has good granuation tissue, no significant cellulitis Data : 08/28/21 05:36 08/28/21 05:36 Micro: Microbiology 08/26/21 18:56 Blood Culture - Preliminary Blood NEGATIVE TO DATE 08/26/21 18:57 Blood Culture - Preliminary Blood NEGATIVE TO DATE A&P Assessment and plan (1) Cellulitis and abscess of buttock: 21-year-old male who presents with pain and swelling in the gluteal region with purulent drainage over the last few days. Patient is also febrile and his white count was up to 16 K though it is down to [address] abdomen pelvis which showed cellulitis but no evidence of abscess Continue IV antibiotics for 1 more day since he was febrile today Hopefully patient can hopefully go home in the next 24 48 hours. Status: Acute (2) History of excision of pilonidal cyst: Patient has open wound after pilonidal cyst excision and therefore will need follow-up in wound care clinic Wet-to-dry dressing change once daily while in the hospital Status: Acute Attestations Medical Necessity Statement*: pilonidal cystectomy wound Coding Level of Care Code Acute Tuckpointer Cleaner Caulker for Flores Patterson Diagnoses Cellulitis and abscess of buttock L02.31; L03.317 History of excision of pilonidal cyst Z98.890
--- NOTE | 2021-08-28 19:02 | PC.NURSE ---
Report to Brittney BYRD at this time.
[2021-08-28] MEDS: zolpidem 5 mg Tablet PO (22:37)
[2021-08-29] VITALS: BP 120/71; PULSE 78; RESP 17; TEMP 36.8; O2SAT 97
[2021-08-29] MEDS: piperacillin-tazobactam 3.375 GM in sodium chloride 0.9% (plus) 50 ML IV (04:22)
[2021-08-29 07:22] VITALS: BP 100/63; PULSE 79; RESP 16; TEMP 36.6; O2SAT 98
--- NOTE | 2021-08-29 09:31 | PM.DCS ---
Discharge Providers Date of Admission: 08/26/21 19:07 Date of Discharge: August 29, 2021 Attending Provider at Admission: J Carlos Gandhi Attending Provider at Discharge: Edgar Swift MD Diagnoses at Discharge Discharge Diagnosis (1) Cellulitis and abscess of buttock: Status: Acute (2) History of excision of pilonidal cyst: Status: Acute Reason for Visit Reason for Visit: COUGH, NAUSEA, MUSCLE ACHES, STATES FEVER Hospital Course Hospital Course HPI: Dr.Arsen Aminata Gandhi Niall Gomez is a 21 year old male with a recent history of pilonidal cyst which falls removed about 3 months ago [place] a [place], no significant chronic medical problems who is presenting with complaints of fever and chills. Since his surgery the patient was experiencing ongoing discharge and bleeding from the surgical site. No significant improvement with outpatient p.o. antibiotics. He reports associated pain. Several days ago he developed fever which increased reaching 104 today. Reports feeling sick. Additionally he reports runny nose, congestion, cough. No chest pain, shortness of breath, palpitations, nausea or vomiting, diarrhea or constipation. Covid and flu testing in ER was negative. Chest x-ray was unremarkable. Denies any similar episodes in the past. He was admitted for the management of: Sepsis secondary to cellulitis of the buttock: He was kept on broad-spectrum antibiotic, blood cultures were negative, surgery was on board no surgical intervention was required, patient responded well to the IV antibiotics, at the time of discharge he was afebrile hemodynamically stable, he was discharged on additional 10 days of levofloxacin and metronidazole. For his pilonidal cyst: S/p excision : Patient has open wound after pilonidal cyst excision: We will follow wound care clinic as an outpatient,Wet-to-dry dressing change once daily During the hospital stay. Patient responded well to the above medical management and is being discharged in stable condition. Physical Exam Const: COMMON NORMALS: patient oriented x3 HENMT: COMMON NORMALS: normocephalic and atraumatic HEAD & SCALP: normocephalic and atraumatic Resp: COMMON NORMALS: clear to auscultation bilaterally EFFORT & INSPECTION: Yes symmetric chest movement AUSCULTATION: clear to auscultation bilaterally Cardio: COMMON NORMALS: regular rate, regular rhythm, S1 normal heart sound present, S2 normal heart sound present, No gallops present (Cardio), No murmurs present (Cardio), No rub (Cardio) and Peripheral pulses 2+ throughout RATE: regular rate RHYTHM: regular rhythm HEART SOUNDS: S1 normal heart sound present and S2 normal heart sound present PERIPHERAL PULSES: Peripheral pulses 2+ throughout GI: COMMON NORMALS: Normal to inspection, nondistended, normoactive bowel sounds present, Soft to palpation, non-tender, No hepatosplenomegaly present and no masses AUSCULTATION: Yes normoactive bowel sounds PALPATION: Yes Soft to palpation and Yes No hepatosplenomegaly present RECTAL EXAM: Yes deferred Extremity: COMMON NORMALS: no clubbing, cyanosis or edema and no pedal edema Neuro: COMMON NORMALS: patient oriented x3 Discharge Data Data Completed and Pending: Completed Studies During Hospitalization Category Date Time Status CT abdomen pelvis w con* [id number] Urge nt Cat Scan 08/26/21 17:49 Completed XR chest 1V amanda ble [id number] Urgent Exams 08/26/21 16:48 Completed Pending at discharge Category Date Time Status Blood Culture Sta t Lab 08/26/21 18:56 Results Respiratory Viral Panel PCR Routine Lab 08/26/21 20:12 Ordered Vitals: Last Vital Signs Temp 97.8 F 08/29/21 07:22 Pulse 79 08/29/21 07:22 Resp 16 08/29/21 07:22 BP 100/63 08/29/21 07:22 Pulse Ox 98 08/29/21 07:22 Discharge Plan Discharge Patient Disposition: Home Condition: Stable Prescriptions: New levofloxacin 750 mg tablet 750 mg PO DAILY 10 Days Qty: 10 RF: 0 metronidazole 500 mg tablet 500 mg PO BID Qty: 20 RF: 0 Acetaminophen Extra Strength 500 mg tablet 500 mg PO Q6H PRN (Reason: pain) Qty: 20 RF: 0 Discharge Orders: Discharge Order (Routine); Ordered 08/29/21 Ordered By: Edgar Swift Referrals: WOUND [facility]ARE [facility], [Staff Physician] - 09/01/21 8:30 am Discharge Diet: Regular Discharge Activity: Resume usual activity Patient Instructions: Metronidazole (By mouth), Levofloxacin (By mouth), Acute Wound Care (GEN), Opioid Safety Activity Restrictions/Additional Instructions: Irrigate wound in shower and then pack the wound with wet gauze once daily until follow-up in wound care clinic Discharge Attestations Time Spent in Discharge Care*: less than 30 min Specific Discharge Activities: educating patient, educating and/or supporting family/caregiver, discussing with pcp/other providers, discussing with correctional case records supervisor/social workers/dc planners, documenting/other paperwork and evaluating patient/reviewing data Status at Discharge: Cognitive status at discharge: cognitively intact, Behavioral status at discharge: cooperative, Functional status at discharge: independent ambulation Overall status at discharge: patient is back to baseline Quality Metrics Clinical Quality Measures During this hospital stay, did patient experience: None Coding Level of Care Code Acute Chg FW DC note Exam Detailed Diagnoses Cellulitis and abscess of buttock L02.31; L03.317 History of excision of pilonidal cyst Z98.890
[2021-08-29 11:05] VITALS: BP 100/63; PULSE 79; RESP 16; TEMP 36.6; O2SAT 98
--- NOTE | 2021-08-29 11:07 | PC.NURSE ---
Removed IV intact and patient tolerated well. Reviewed discharge instructions with patient and mother at this time. Patient verbalized understanding of discharge instructions and follow up care with wound care. Patient verbalized understanding of medications and how to take them.
== END 2021-08-29 10:40 | disposition home or self-care (01) | DRG 603 ==
LOC: ER 19:08 → MEDSURG 19:57
PROVIDERS: Hospitalist; Nurse Practitioner Family; Admitting Provider Internal Medicine; Emergency Provider Emergency Medicine; Visit Provider Internal Medicine
DX: L03.317 Cellulitis of buttock (principal)
CPT/HCPCS: 36415; 71045; 74177; 80048; 80053; 83605; 83735; 84145; 85025; 87040; 87426; 87804; 96365; 96367; 96375; 99285; J1170; J2270; J2543; J3370; J7030; J7050; Q9967

== ENCOUNTER 2021-09-01 08:30 | Outpatient (CLI) | payer OTHER, SELFPAY | END 2021-09-01 08:31 | disposition home or self-care (01) | LOC: WOUND 08:31 | PROVIDERS: Visit Provider Nurse Practitioner Family | DX: T81.89XA Other complications of procedures, not elsewhere classified, initial encounter (principal); Y83.8 Other surgical procedures as the cause of abnormal reaction of the patient, or of later complication, without mention of misadventure at the time of the procedure; F17.210 Nicotine dependence, cigarettes, uncomplicated | CPT/HCPCS: 11042; G0463 ==

== ENCOUNTER 2025-03-05 12:31 | Outpatient (RCR) | payer OTHER, SELFPAY | END 2025-03-23 23:59 | disposition home or self-care (01) | LOC: SOT 12:31 | PROVIDERS: Visit Provider Nurse Practitioner Acute Care | DX: D49.7 Neoplasm of unspecified behavior of endocrine glands and other parts of nervous system (principal); Z98.890 Other specified postprocedural states; E23.2 Diabetes insipidus | CPT/HCPCS: 97167 ==